=== PATIENT | female | born 1960 | race Caucasian/White ===

== ENCOUNTER 2016-07-29 12:30 | Emergency (ER) | payer OTHER ==
--- NOTE | ~2016-07-29 | CR282 ---
[facility] A Service of [facility] & [facility] RADIOLOGY TEXT RESULTS PATIENT: ELEN LORENZANA LOCATION: [facility] : 58 UNIT #: [id number] AGE: [address]: Maame Hansen SEX: F ORDER DR: [id number] [facility]. [place], [place] [address] [id number] E MR#: [id number] Acc #: [id number] NAME: ELEN LORENZANA. : 1960 SEX: F STUDY DATE/TIME: 07/29/2016 13:21 UNIT: [facility] ROOM: STUDY DESCRIPTION: CR Wrist Min 3 View Rt Attending Physician: Maame Hansen Pa-C Ordering Physician: Maame Hansen Pa-C Primary Care Physician: No Primary Care Physician MEDICAL IMAGING REPORT This report is preliminary unless electronic signature is present EXAM Right wrist, 3 views, 07/29/2016, 1321 hours. CLINICAL HISTORY 56-year-old who fell today, right wrist pain since fall. COMPARISON None. FINDINGS AP, lateral and oblique views demonstrate a transverse mildly comminuted fracture of the distal radius approximately 1.1 cm proximal to the distal articular surface. There is no definite extension into the joint space demonstrated although the proximity does raise concern for intraarticular extension. There is a few millimeters of posterior displacement and minimal angulation. There is an associated nondisplaced or incomplete fracture of the ulnar styloid. The carpal bones are intact. IMPRESSION There is an acute transverse minimally comminuted fracture of the distal radius occurring 1.1 cm proximal to the distal articular surface of the radius. There is a few millimeters of dorsal displacement without significant angulation. No definite intraarticular extension is seen however the proximity of the fraction to the articular surface does raise concern for intraarticular extension. There is an associated transverse either nondisplaced or incomplete fracture of the ulnar styloid. Dictated by... Cyn Aquino M.D. THIS IS AN ELECTRONICALLY VERIFIED REPORT Cyn Aquino M.D. at 07/30/2016 9:16 AM [facility] A Service of [facility] & [facility] RADIOLOGY TEXT RESULTS PATIENT: ELEN LORENZANA LOCATION: [facility] : 58 UNIT #: [id number] AGE: [address]: Maame Hansen SEX: F ORDER DR: Timothy TD: 07/29/2016 18:51 JOB #: [id number] MEDICAL IMAGING REPORT Page 1 of 1 COPY
== END 2016-07-29 14:56 | disposition home or self-care (01) ==
LOC: CED 12:30 → CFTX 12:30
DX: S52.501A Unspecified fracture of the lower end of right radius, initial encounter for closed fracture (principal); F17.210 Nicotine dependence, cigarettes, uncomplicated; X58.XXXA Exposure to other specified factors, initial encounter; Y92.009 Unspecified place in unspecified non-institutional (private) residence as the place of occurrence of the external cause
CPT/HCPCS: 29125; 73110; 99283